=== PATIENT | male | born 1950 | race Caucasian/White ===

== ENCOUNTER 2021-09-21 11:21 | Emergency (ER) | payer BC, OTHER ==
[2021-09-21] MEDS ORDERED: ONDANSETRON 4 MG/2 ML VIAL ONE (12:06)
[2021-09-21] MEDS ORDERED: CEFAZOLIN SODIUM 1 GM/VIAL ONE (12:06)
[2021-09-21] MEDS ORDERED: MORPHINE 4 MG/ML SYR ONE ×3 (12:06→14:56)
--- NOTE | 2021-09-21 12:29 | RAD REPORT ---
EXAM DESCRIPTION: RAD - Hand Right 3 View - 09/21/2021 11:59 am CLINICAL HISTORY: Right hand pain status post injury FINDINGS: Laceration soft tissue third distal phalanx. Lucency is present within the base of the third distal phalanx likely an acute fracture extending int raarticularly. There is widening of the third DIP joint which may indicate ligamentous or tendon tear. MRI of the and may be helpful for further evaluation
--- NOTE | 2021-09-21 13:21 | ER ---
Nurse's Notes [facility] Name: Margi Post Age: 70 yrs Sex: Male : 1950 Arrival Date: 09/21/2021 Time: 11:23 Bed 2 Private MD: Alpesh Yang Diagnosis: Open fracture distal right middle finger with damage to nail with extensor tendon injury Presentation: 09/21 11:55 Chief complaint: Patient states: injured finger-pile of ply wood fell injuring the r jg9 middle finger. Coronavirus screen: Vaccine status: Patient reports being unvaccinated. Ebola Screen: Patient negative for fever greater than or equal to 101.5 degrees Fahrenheit, and additional compatible Ebola Virus Disease symptoms Patient denies exposure to infectious person. Patient denies travel to an Ebola-affected area in the 21 days before illness onset. Initial Sepsis Screen: Does the patient meet any 2 criteria? No. Patient's initial sepsis screen is negative. Does the patient have a suspected source of infection? No. Patient's initial sepsis screen is negative. Risk Assessment: Do you want to hurt yourself or someone else? Patient reports no desire to harm self or others. Onset of symptoms was September 21, 2021. 11:55 Method Of Arrival: Ambulatory [facility] 11:55 Acuity: MATILDE 3 jg9 Triage Assessment: 12:12 General: Appears in no apparent distress. Behavior is calm, cooperative. Pain: jg9 Complains of pain in right hand-middle finger Pain currently is 9 out of 10 on a pain scale. Historical: - Allergies: 12:13 Naproxen; jg9 12:13 hydrocorts; jg9 12:13 poison mike; jg9 - Immunization history:: Adult Immunizations not up to date. - Social history:: Smoking status: Patient denies any tobacco usage or history of. Screenin:10 Abuse screen: Denies threats or abuse. Denies injuries from another. Nutritional jg9 screening: No deficits noted. Tuberculosis screening: No symptoms or risk factors identified. Fall Risk None identified. Assessment: 13:01 Reassessment: Patient and/or family updated on plan of care and expected duration. Pain jg9 level reassessed. Patient is alert, oriented x 3, equal unlabored respirations, skin warm/dry/pink. Patient states symptoms have improved. 14:00 Reassessment: Patient and/or family updated on plan of care and expected duration. Pain jg9 level reassessed. Patient is alert, oriented x 3, equal unlabored respirations, skin warm/dry/pink. 15:00 Reassessment: No changes from previously documented assessment. Patient and/or family jg9 updated on plan of care and expected duration. Pain level reassessed. Patient is alert, oriented x 3, equal unlabored respirations, skin warm/dry/pink. 16:00 Reassessment: No changes from previously documented assessment. Patient and/or family jg9 updated on plan of care and expected duration. Pain level reassessed. Patient is alert, oriented x 3, equal unlabored respirations, skin warm/dry/pink. Vital Signs: 11:55 BP 156 / 83; Pulse 91; Resp 17 S; Temp 98.3(A); Pulse Ox 98% ; Weight 78.47 kg (R); jg9 Height 6 ft. 2 in. (187.96 cm) (R); Pain 10/10; 12:00 BP 160 / 88; Pulse 83; Resp 16 S; Pulse Ox 95% on R/A; Pain 9/10; jg9 12:45 BP 156 / 96; Pulse 74; Resp 16 S; Pulse Ox 100% ; Pain 5/10; jg9 13:45 BP 157 / 85; Pulse 76; Resp 16 S; Pulse Ox 97% ; jg9 14:15 BP 144 / 86; Pulse 66; Resp 16 S; Pulse Ox 97% ; jg9 15:30 BP 154 / 87; Pulse 66; Resp 14 S; Pulse Ox 100% on R/A; Pain 3/10; jg9 16:15 BP 154 / 77; Pulse 64; Resp 16 S; Pulse Ox 100% on R/A; jg9 11:55 Body Mass Index 22.21 (78.47 kg, 187.96 cm) jg9 ED Course: 11:23 Patient arrived in ED. mr 11:23 Alpesh Yang MD is Private Physician. mr 11:25 Juan Carlos Saleem NP is PHCP. pm1 11:25 Christian Mota MD is Attending Physician. pm1 11:55 Brii Miller, ARIADNA is Primary Nurse. jg9 11:57 Triage completed. jg9 12:01 Hand Right 3 View XRAY In Process Unspecified. EDMS 12:10 Inserted saline lock: 18 gauge in left antecubital area, using aseptic technique. jg9 12:13 Patient has correct armband on for positive identification. Bed in low position. Call jg9 light in reach. Side rails up X 1. 12:14 Arm band placed on right wrist. jg9 13:01 No apparent distress. Resting quietly. Awaiting re-evaluation by ER provider. jg9 13:48 initiated transfer to [facility]. bd 14:25 transfer cancelled by Juan Carlos Saleem. bd 16:22 Assist provider with fracture care of right middle finger Fracture is Obvious deformity jg9 is noted. Circulation, motor and sensation is intact. Set up for procedure. Performed by Juan Carlos Saleem EXPERIMENTAL WELDER Immobilized with finger splint. Post immobilization, circulation, motor and sensation remain intact. Patient tolerated well. 16:24 IV discontinued. jg9 Administered Medications: 12:00 Drug: morphine 4 mg {Note: RASS-0.} Route: IVP; Infused Over: 4 mins; Site: left jg9 antecubital; 12:30 Follow up: Response: No adverse reaction; Pain is decreased jg9 12:00 Drug: Zofran (Ondansetron) 4 mg Route: IVP; Site: left antecubital; jg9 12:43 Follow up: Response: No adverse reaction jg9 12:15 Drug: Ancef (cefazolin) 1 grams Route: IVPB; Site: left antecubital; jg9 12:43 Follow up: IV Status: Completed infusion; IV Intake: 10ml jg9 12:41 Drug: morphine 4 mg Route: IVP; Infused Over: 4 mins; Site: left antecubital; jg9 13:30 Follow up: Response: No adverse reaction; Pain is decreased jg9 15:00 Drug: morphine 4 mg Route: IVP; Infused Over: 4 mins; Site: right forearm; jg9 15:45 Follow up: Response: No adverse reaction; Pain is decreased jg9 15:30 Drug: Lidocaine (1 %) 5 ml Volume: 5 ml; Route: Infiltration; Site: affected area; jg9 15:47 Follow up: Response: No adverse reaction; Marked relief of symptoms; Pain is decreased jg9 Medication: 12:14 VIS not applicable for this client. jg9 Intake: 12:43 IV: 10ml; Total: 10ml. jg9 Outcome: 13:20 ER care complete, transfer ordered by MD. pm1 16:17 Discharge ordered by MD. pm1 16:23 Discharged to home ambulatory. jg9 16:23 Condition: stable 16:23 Discharge instructions given to patient, Instructed on discharge instructions, follow up and referral plans. Demonstrated understanding of instructions, follow-up care. 16:24 Prescriptions given X 2. jg9 16:26 Patient left the ED. jg9 Signatures: Dispatcher [employer] EDMS Selina Brown Mary mr JoanJuan Carlos ibarra, EXPERIMENTAL WELDER EXPERIMENTAL WELDER pm1 Brii Miller, RN RN jg9 Corrections: (The following items were deleted from the chart) 12:12 11:57 Allergies: hydrocodone; jg9 jg9 12:13 12:11 Allergies: hydrocots; jg9 jg9 12:13 12:11 Allergies: Naproxen; jg9 jg9 12:13 12:11 Allergies: poison mike; jg9 jg9 12:13 12:13 PMHx: Unable to Obtain; jg9 jg9
--- NOTE | 2021-09-21 13:21 | EDPHYS ---
Physician Documentation [facility] Name: Margi Post Age: 70 yrs Sex: Male : 1950 Arrival Date: 09/21/2021 Time: 11:23 Bed 2 Private MD: Alpesh Yang ED Physician Christian Mota HPI: 09/21 11:42 This 70 yrs old Male presents to ER via Ambulatory with complaints of Finger Laceration.pm1 11:42 The patient or guardian reports injury. The complaints affect the right middle finger. pm1 Context: The problem was sustained at work, resulted from a crush injury, by a heavy object. Onset: The symptoms/episode began/occurred just prior to arrival. Modifying factors: The symptoms are alleviated by nothing, the symptoms are aggravated by nothing. Associated signs and symptoms: Pertinent negatives: cyanosis distally, decreased sensation distally, numbness distally, tingling distally. Severity of symptoms: in the emergency department the symptoms are unchanged. The patient has not experienced similar symptoms in the past. The patient has not recently seen a physician. Patient was at work and was moving multiple pieces of plywood and then his coworker dropped his side of the plywood and the the patient's distal right middle finger was crushed. Right hand dominant. . Historical: - Allergies: 12:13 Naproxen; jg9 12:13 hydrocorts; jg9 12:13 poison mike; jg9 - Immunization history:: Adult Immunizations not up to date. - Social history:: Smoking status: Patient denies any tobacco usage or history of. ROS: 11:42 Constitutional: Negative for fever, chills, and weight loss, Cardiovascular: Negative pm1 for chest pain, palpitations, and edema, Respiratory: Negative for shortness of breath, cough, wheezing, and pleuritic chest pain. 11:42 Neuro: Negative for headache, weakness, numbness, tingling, and seizure. 11:42 MS/extremity: Positive for deformity, laceration, pain, swelling, of the dorsal aspect of distal phalanx of right middle finger and palmar aspect of distal phalanx of right middle finger. 11:42 Skin: Positive for laceration(s), of the right middle finger. 11:42 All other systems are negative. Exam: 11:42 Constitutional: This is a well developed, well nourished patient who is awake, alert, pm1 and in no acute distress. Head/Face: Normocephalic, atraumatic. 11:42 Cardiovascular: Exam negative for acute changes, Rate: normal, Rhythm: regular, Pulses: no pulse deficits are appreciated, Heart sounds: normal, normal S1and S2. 11:42 Respiratory: Exam negative for acute changes, respiratory distress, shortness of breath. 11:42 Skin: Appearance: normal except for affected area, injury, laceration(s), that can be described as contaminated, no foreign body, irregular, without bleeding, Distal phalanx of right middle finger . 11:42 Neuro: Exam negative for acute changes, Orientation: is normal, Mentation: is normal, Motor: is normal, moves all fours. Vital Signs: 11:55 BP 156 / 83; Pulse 91; Resp 17 S; Temp 98.3(A); Pulse Ox 98% ; Weight 78.47 kg (R); jg9 Height 6 ft. 2 in. (187.96 cm) (R); Pain 10/10; 12:00 BP 160 / 88; Pulse 83; Resp 16 S; Pulse Ox 95% on R/A; Pain 9/10; jg9 12:45 BP 156 / 96; Pulse 74; Resp 16 S; Pulse Ox 100% ; Pain 5/10; jg9 13:45 BP 157 / 85; Pulse 76; Resp 16 S; Pulse Ox 97% ; jg9 14:15 BP 144 / 86; Pulse 66; Resp 16 S; Pulse Ox 97% ; jg9 15:30 BP 154 / 87; Pulse 66; Resp 14 S; Pulse Ox 100% on R/A; Pain 3/10; jg9 16:15 BP 154 / 77; Pulse 64; Resp 16 S; Pulse Ox 100% on R/A; jg9 11:55 Body Mass Index 22.21 (78.47 kg, 187.96 cm) 9 MDM: 11:32 Patient medically screened. pm1 11:44 ED course: Tetanus 1.5 years ago from left thumb injury. pm1 13:16 Data reviewed: vital signs. Data interpreted: Pulse oximetry: on room air is 100 %. pm1 Interpretation: normal. 13:18 Counseling: I had a detailed discussion with the patient and/or guardian regarding: pm1 radiology results, the need to transfer to another facility, [facility] does not immediately have the required specialist. 13:26 Physician consultation: Timothy Perez MD regarding consult, patient's condition, after pm1 a discussion of the case, a recommendation for transfer for higher level of care is made, He is not available to help the patient. Not coupon manifest clerk for us. Recommends transfer for higher level of care. . 14:34 Physician consultation: Hand Surgeon Ted regarding regarding transfer, to [facility]. pm1 consult, patient's condition, He reviewed the images of the laceration and x-rays. Recommends removal of nail, discharge with PO antibiotics - Bactrim DS, splint of finger, splint in nailbed fold, and nonadherent dressing. Does not recommend suturing, believes will granulate without suturing. Wants the patient's name and phone number so that his office can call to setup follow up appointment. 15:47 ED course: After cleaning wound, showed Dr. Mota the wound and he recommends some pm1 sutures to tack the loose tissue together. 09/21 13:45 Order name: COVID-19 SARS RT PCR (Document "Date of Onset" if Symptomatic); Complete pm1 Time: 15:10 09/21 11:34 Order name: Hand Right 3 View XRAY; Complete Time: 12:31 pm1 09/21 11:34 Order name: IV Saline Lock; Complete Time: 12:10 pm1 09/21 14:45 Order name: Finger Splint; Complete Time: 16:26 pm1 Administered Medications: 12:00 Drug: morphine 4 mg {Note: RASS-0.} Route: IVP; Infused Over: 4 mins; Site: left jg9 antecubital; 12:30 Follow up: Response: No adverse reaction; Pain is decreased j9 12:00 Drug: Zofran (Ondansetron) 4 mg Route: IVP; Site: left antecubital; jg9 12:43 Follow up: Response: No adverse reaction jg9 12:15 Drug: Ancef (cefazolin) 1 grams Route: IVPB; Site: left antecubital; jg9 12:43 Follow up: IV Status: Completed infusion; IV Intake: 10ml j9 12:41 Drug: morphine 4 mg Route: IVP; Infused Over: 4 mins; Site: left antecubital; jg9 13:30 Follow up: Response: No adverse reaction; Pain is decreased jg9 15:00 Drug: morphine 4 mg Route: IVP; Infused Over: 4 mins; Site: right forearm; jg9 15:45 Follow up: Response: No adverse reaction; Pain is decreased jg9 15:30 Drug: Lidocaine (1 %) 5 ml Volume: 5 ml; Route: Infiltration; Site: affected area; jg9 15:47 Follow up: Response: No adverse reaction; Marked relief of symptoms; Pain is decreased jg9 Disposition: 19:07 Co-signature as Attending Physician, Christian Mota MD. rn Disposition Summary: 09/21/21 16:17 Discharge Ordered Location: Home pm1 Problem: new(09/21/21 16:17) pm1 Symptoms: have improved(09/21/21 16:17) pm1 Condition: Stable(09/21/21 16:17) pm1 Diagnosis - Open fracture distal right middle finger with damage to nail with extensor tendon pm1 injury Followup: pm1 - With: Private Physician - When: 2 - 3 days - Reason: Recheck today's complaints, Continuance of care, Re-evaluation by your physician Followup: pm1 - With: Emergency Department - When: As needed - Reason: Worsening of condition Discharge Instructions: - Discharge Summary Sheet pm1 - Cast or Splint Care, Adult pm1 - Finger Fracture, Adult pm1 - Laceration Care, Adult pm1 - Crush Injury of the Hand pm1 Forms: - Medication Reconciliation Form pm1 - Thank You Letter pm1 - Antibiotic Education pm1 - Prescription Opioid Use pm1 Prescriptions: - Bactrim DS 800-160 mg Oral Tablet - take 1 tablet by ORAL route every 12 hours for 10 days; 20 tablet; Refills: 0, pm1 Product Selection Permitted - Tylenol-Codeine #3 300 mg-30 mg Oral - take 2 tablet by ORAL route every 6 hours As needed; 20 tablet; Refills: 0, pm1 Product Selection Permitted Signatures: Dispatcher [employer] EDChristian Maloney MD MD rn Marinas, Patrick, MELISSA SHELVER pm1 Brii Miller RN RN jg9 Corrections: (The following items were deleted from the chart) 12:12 11:57 Allergies: hydrocodone; jg9 jg9 12:13 12:11 Allergies: hydrocots; jg9 jg9 12:13 12:11 Allergies: Naproxen; jg9 jg9 12:13 12:11 Allergies: poison mike; jg9 jg9 12:13 12:13 PMHx: Unable to Obtain; jg9 jg9 16:16 13:20 MD pm1 pm1 16:16 13:20 [facility] pm1 pm1 16:16 13:20 Specialty pm1 pm1 16:16 13:20 Stable pm1 pm1 16:16 13:20 new pm1 pm1 16:16 13:20 have improved [facility] pm1 16:16 13:20 Open fracture distal right middle finger with damage to nail with extensor tendon pm1 injury pm1 18:42 14:34 Physician consultation: Hand Surgeon Ted regarding regarding transfer, to [address] consult, patient's condition, He reviewed the images of the laceration and x-rays. Recommends removal of nail, discharge with PO antibiotics - Bactrim DS, splint of finger, splint in nailbed fold, and nonadherent dressing. Does not recommend suturing, believes will granulate without suturing, 1
[2021-09-21] MEDS ORDERED: LIDOCAINE 1% MPF 5 ML VIAL ONE (14:54)
[2021-09-21 16:32] VITALS: TEMP 98.3
[2021-09-21 16:40] VITALS: O2SAT 100
[2021-09-21 16:41] VITALS: BP 154/77
== END 2021-09-21 16:26 | disposition home or self-care (01) ==
LOC: ER 11:21
DX: S62.632B Displaced fracture of distal phalanx of right middle finger, initial encounter for open fracture (principal); W20.8XXA Other cause of strike by thrown, projected or falling object, initial encounter; Y93.89 Activity, other specified; Y92.69 Other specified industrial and construction area as the place of occurrence of the external cause; Y99.0 Civilian activity done for income or pay; Z88.8 Allergy status to other drugs, medicaments and biological substances; Z20.822 Contact with and (suspected) exposure to COVID-19
CPT/HCPCS: 73130; 99284; U0003; J2405; J0690

== ENCOUNTER 2021-10-01 07:11 | Day surgery (SDC) | payer BC, OTHER ==
[2021-09-30 15:24] LABS: Absolute Lymphocytes (CBC) 1.1 K/uL (0.7-4.9); Hematocrit 39.9 % (39.6-49.0); MPV 7.5 fL (7.6-11.3)
--- NOTE | 2021-09-30 15:32 | RAD REPORT ---
EXAM DESCRIPTION: RAD - Chest Pa And Lat (2 Views) - 09/30/2021 3:18 pm CLINICAL HISTORY: Pre op COMPARISON: No comparisons FINDINGS: Lines: None. Lungs: No evidence of edema or pneumonia. Pleural: No significant pleural effusions or pneumothorax. Cardiac: The heart size is within normal limits. Bones: No acute fractures. Other: IMPRESSION: No acute cardiopulmonary disease.
[2021-10-01] MEDS ORDERED: Ringers Lactate 1,000 ML IV ONE (07:27)
[2021-10-01] MEDS ORDERED: CEFAZOLIN SODIUM 1 GM/VIAL ONE (07:27)
[2021-10-01] MEDS ORDERED: propofoL 200 MG/20 ML VIAL IV ONE (09:01)
[2021-10-01] MEDS ORDERED: MIDAZOLAM HCL 2 MG/2 ML INJ ONE (09:01)
[2021-10-01] MEDS ORDERED: FENTANYL CITR 100 MCG/2 ML ONE (09:01)
[2021-10-01] MEDS ORDERED: LIDOCAINE 2% MPF 5 ML VIAL ONE (09:01)
[2021-10-01] MEDS ORDERED: KETOROLAC 30 MG/ML INJ ONE (09:01)
--- NOTE | 2021-10-01 10:25 | RAD REPORT ---
EXAM DESCRIPTION: RAD - Fluoroscopy <1 Hour - 10/01/2021 10:10 am CLINICAL HISTORY: Finger surgery FINDINGS: Thirty-eight intraoperative fluoroscopic spot images obtained Fluoroscopy time 1 minutes Pins have been placed into a phalanx. Please refer to surgeons report for additional findings The examination was performed by Dr. Perez
[2021-10-01] MEDS: HYDROMORPHONE HCL 1 MG/ML INJ ONE ×8 (10:43→11:19)
[2021-10-01] MEDS ORDERED: HYDROMORPHONE HCL 1 MG/ML INJ ONE (11:03)
[2021-10-01] MEDS ORDERED: CODEINE 30MG/APAP 300MG TAB ONE (11:57)
[2021-10-01 13:12] VITALS: BP 136/91; TEMP 97.4; O2SAT 100
--- NOTE | 2021-10-01 21:36 | OP ---
Surgeon: Timothy Perez MD Preoperative Diagnoses: Open fracture of the right middle and distal phalanx, extensor tendon lacera tion, open wound of the finger. Postoperative Diagnoses: Open fracture of the right middle and distal phalanx, extensor tendon lacer ation, open wound of the finger. Procedures Performed: Debridement of the skin, subcutaneous tissue, and bone; fusion of distal inter phalangeal joint; extensor tendon repair; nail bed repair; simple closure of approximately 2 cm and s plint. Anesthesia: General. Description Of Procedure: After the satisfactory induction of general anesthesia, the right hand was prepped with Betadine scrub and Betadine paint. Dry sterile drapes were applied in usual manner. T he arm was elevated and exsanguinated with an Esmarch. Tourniquet was inflated to 250 mmHg. A scalp el was used to extend the incision where the patient had laceration over the right middle finger on t he ulnar side. Laceration extended in a zig-zag over the dorsum. Again, the excess extensor surface of the finger and nail bed had been prepped, and based on the ulnar side, the joint with comminuted fracture. Arcuate fracture is missing. The joint could not be salvaged. The extensor tendon was ba sically ripped off distally. The joint was irrigated with 3 L of Betadine solution. Then, a saw was used to freshen both edges after this was done and then fusion was performed with a 0.035 K-wires, p assed from proximal to distal at the distal phalanx and then from distal to proximal into the middle phalanx, aligning the fusion at approximately 10 degrees of flexion. We also arthrodesed the PIP desiree nt. After this was done, wire was cut and bent, and then the patient underwent repair. A drill hole was made in the distal phalanx tip. A 4-0 Prolene was placed to advance the extensor mechanism to t he point of attachment. After this was done, we did skin edges and repaired the nail bed. Horizonta l mattress sutures were used to advance the nail bed to close it. Nail bed laceration was closed wit h 4-0 PDS, and then the skin flap was closed with 4-0 Prolene horizontal mattress and simple sutures. A piece of and the tourniquet was released. Dressed with Xeroform, 2-inch Meri, and sp lint holding the PIP and DIP in extension. The patient tolerated the procedure well and returned to recovery. PAMELA/KRYSTLE Voice ID: [id number] Report ID: [id number]
--- NOTE | 2021-10-03 17:37 | EKG ---
Test Date: 2021-09-30 Test Time: 15:00:33 Fiberglass Technician: BHARAT MEASUREMENT RESULTS: Intervals: Rate: 74 MO: 186 QRSD: 122 QT: 390 QTc: 432 [place]: P: 66 MO: 186 QRS: -26 T: 44 INTERPRETIVE STATEMENTS: Normal sinus rhythm Right bundle branch block Abnormal ECG No previous ECG available for comparison Electronically Signed On 10-03-21 17:31:55 CDT by Nahum Vasquez
== END 2021-10-01 12:30 | disposition home or self-care (01) ==
LOC: OR 07:11
PROVIDERS: ATTEND Specialist
PROC: 0PST04Z Reposition Right Finger Phalanx with Internal Fixation Device, Open Approach (ICD-10-PCS; 2021-10-01)
PROC: 0PST04Z Reposition Right Finger Phalanx with Internal Fixation Device, Open Approach (ICD-10-PCS; principal; 2021-10-01 09:00)
DX: S62.632B Displaced fracture of distal phalanx of right middle finger, initial encounter for open fracture (principal); S66.322A Laceration of extensor muscle, fascia and tendon of right middle finger at wrist and hand level, initial encounter; Z20.822 Contact with and (suspected) exposure to COVID-19
CPT/HCPCS: 93005; 85025; 36415; 88304; 71046; 76000; 26765; 11012; U0003; J2704; J2250; J3010; J1170 ×3; J7120; J0690

== ENCOUNTER 2021-10-16 14:31 | Emergency (ER) | payer OTHER, BC ==
[2021-10-16 15:56] LABS: Absolute Lymphocytes (CBC) 1.4 K/uL (0.7-4.9); Hematocrit 36.7 % (39.6-49.0); Lymphocytes % 28.3 % (15.3-44.8); MCV 96.2 fL (80-100); RBC Red Blood Cell Count 3.81 M/uL (4.33-5.43)
--- NOTE | 2021-10-16 16:22 | EDPHYS ---
Physician Documentation [facility] Name: Margi Post Age: 70 yrs Sex: Male : 1950 Arrival Date: 10/16/2021 Time: 14:32 Bed 14 Private MD: ED Physician Jesus Santamaria HPI: 10/16 16:06 This 70 yrs old Male presents to ER via Ambulatory with complaints of Wound Check - pm1 right middle finger. 16:06 Patient presents to ED for recheck of: surgical repair and right middle finger crush pm1 injury. The affected area is on the right middle finger. Previous treatment: Middle finger crush injury on September 21, 2021. Patient was discharged from the ER at that time and followed up with Dr. Mike. Patient with surgical repair of his right middle finger and he is presenting here today in the ER for evaluation of his surgical wound per recommendation by hand surgeon. Patient was concerned about a greenish discoloration to his finger. Progress: The patient reports excellent improvement in the affected area. There has been resolution, improvement, or non-development of any drainage, fever, pain, redness or swelling. The patient has not experienced similar symptoms in the past. The patient has not recently seen a physician, Patient with appointment on Tuesday that was canceled due to surgery that Dr. Mike had to perform another patient. Patient was rescheduled to next week. 16:06 Patient reports seeing the green discoloration to his finger postsurgery, for at least pm1 the past week and reports improvement in the discoloration. Historical: - Allergies: 15:09 hydrocorts; jg9 15:09 Naproxen; jg9 15:09 POISON CARLENE; jg9 - Immunization history:: Adult Immunizations not up to date. - Social history:: Smoking status: Patient denies any tobacco usage or history of. ROS: 16:06 Constitutional: Negative for fever, chills, and weight loss, Cardiovascular: Negative pm1 for chest pain, palpitations, and edema, Respiratory: Negative for shortness of breath, cough, wheezing, and pleuritic chest pain, MS/Extremity: Negative for injury and deformity. 16:06 Skin: Positive for Greenish coloration to right middle finger. 16:06 All other systems are negative. Exam: 16:06 Constitutional: This is a well developed, well nourished patient who is awake, alert, pm1 and in no acute distress. Head/Face: Normocephalic, atraumatic. 16:06 Cardiovascular: Exam negative for acute changes, Rate: normal, Rhythm: regular, Pulses: no pulse deficits are appreciated. 16:06 Respiratory: Exam negative for acute changes, respiratory distress, shortness of breath. 16:06 Skin: Wound recheck: Suture laceration closure: the wound is healing well, the edges are well approximated, no evidence of dehiscence, no drainage, no erythema, No indication of cellulitis or abscess. Patient with out any signs of discharge, erythema, dehiscence. Patient with expected normal amount of swelling postsurgical repair with pinning. Small turquoise color discoloration to various locations on right middle finger. Negative for papules or pustules. Vital Signs: 15:05 BP 131 / 75; Pulse 65; Resp 17 S; Temp 98.4; Pulse Ox 99% on R/A; Weight 77.11 kg; jg9 Height 6 ft. 2 in. (187.96 cm); Pain 3/10; 15:30 BP 108 / 73; Pulse 67; Resp 17 S; Pulse Ox 100% on R/A; jg9 16:00 BP 113 / 71; Pulse 63; Resp 17 S; Pulse Ox 100% on R/A; jg9 16:30 BP 122 / 68; Pulse 62; Resp 17 S; Pulse Ox 100% ; jg9 15:05 Body Mass Index 21.83 (77.11 kg, 187.96 cm) 9 MDM: 14:40 Patient medically screened. pm1 15:04 Physician consultation: Timothy Perez MD regarding consult, patient's condition, would pm1 like further tests performed, CBC, Informed him that I evaluated the patient with Dr. Handley and we do not appreciate infection present in the finger. Dr. Perez would like to see the patient at 9:00 on Tuesday. 16:06 Data reviewed: vital signs. Data interpreted: Pulse oximetry: on room air is 99 %. pm1 Interpretation: normal. 16:07 Counseling: I had a detailed discussion with the patient and/or guardian regarding: lab pm1 results, the need for outpatient follow up, Dr. Perez would like the patient to see him in the office on Tuesday at 9:00, to return to the emergency department if symptoms worsen or persist or if there are any questions or concerns that arise at home. 16:57 ED course: No contact back from Ana, will cover the patient with double pm1 antibiotic coverage, cephalexin and Cipro. Gave patient return precautions for worsening symptoms prior to evaluation by Dr. Carter on Tuesday at 9:00. 10/16 15:04 Order name: CBC with Diff; Complete Time: 16:06 pm1 Administered Medications: No medications were administered Disposition: 18:56 Co-signature as Attending Physician, Jesus Santamaria DO I was immediately available on-site ms3 in the Emergency Department for consultation in the care of the patient.. Disposition Summary: 10/16/21 16:22 Discharge Ordered Location: Home pm1 Problem: new pm1 Symptoms: have improved pm1 Condition: Stable pm1 Diagnosis - Encounter for evaluation of surgical wound right middle finger pm1 Followup: pm1 - With: Emergency Department - When: As needed - Reason: Worsening of condition Followup: pm1 - With: Timothy Perez MD - When: 10/19/2021 - Reason: Recheck today's complaints, Continuance of care, Re-evaluation by your physician, Tuesday at 9:00AM in his office Discharge Instructions: - Discharge Summary Sheet pm1 - Sutured Wound Care pm1 Forms: - Medication Reconciliation Form pm1 - Thank You Letter pm1 - Antibiotic Education pm1 - Prescription Opioid Use pm1 Prescriptions: - Cephalexin 500 mg Oral Capsule - take 1 capsule by ORAL route every 6 hours for 10 days; 40 capsule; Refills: 0, pm1 Product Selection Permitted - Cipro 500 mg Oral Tablet - take 1 tablet by ORAL route every 12 hours for 10 days; 20 tablet; Refills: 0, pm1 Product Selection Permitted Signatures: [facility] EDJuan Carlos Grier NP IRON WORKER APPRENTICE pm1 Jesus Santamaria DO DO ms3 Brii Miller RN RN jg9 Corrections: (The following items were deleted from the chart) 10/17 11:19 10/16 16:57 ED course: No contact back from Ana, will cover the patient with pm1 double antibiotic coverage, cephalexin and Cipro. Gave patient return precautions for worsening symptoms prior to evaluation by 1 on Tuesday at 9:00. pm1
--- NOTE | 2021-10-16 16:22 | ER ---
Nurse's Notes [facility] Name: Margi Post Age: 70 yrs Sex: Male : 1950 Arrival Date: 10/16/2021 Time: 14:32 Bed 14 Private MD: Diagnosis: Encounter for evaluation of surgical wound right middle finger Presentation: 10/16 15:05 Chief complaint: Patient states: patient is here for a wound evaluation of middle jg9 finger on the right hand. Coronavirus screen: Vaccine status: Patient reports being unvaccinated. Ebola Screen: Patient negative for fever greater than or equal to 101.5 degrees Fahrenheit, and additional compatible Ebola Virus Disease symptoms Patient denies exposure to infectious person. Patient denies travel to an Ebola-affected area in the 21 days before illness onset. Initial Sepsis Screen: Does the patient meet any 2 criteria? No. Patient's initial sepsis screen is negative. Does the patient have a suspected source of infection? Yes: Skin breakdown/wound. Risk Assessment: Do you want to hurt yourself or someone else? Patient reports no desire to harm self or others. 15:05 Method Of Arrival: Ambulatory 9 15:05 Acuity: MATILDE 3 j9 15:12 Onset of symptoms is unknown. 9 Triage Assessment: 15:05 General: Appears in no apparent distress. Behavior is calm, cooperative. Pain: jg9 Complains of pain in palmar aspect of distal phalanx of right middle finger and right middle fingernail Pain currently is 3 out of 10 on a pain scale. Quality of pain is described as. Historical: - Allergies: 15:09 hydrocorts; jg9 15:09 Naproxen; jg9 15:09 POISON CARLENE; jg9 - Immunization history:: Adult Immunizations not up to date. - Social history:: Smoking status: Patient denies any tobacco usage or history of. Screenin:11 Abuse screen: Denies threats or abuse. Denies injuries from another. Nutritional jg9 screening: No deficits noted. Tuberculosis screening: No symptoms or risk factors identified. Fall Risk None identified. Assessment: 16:00 Reassessment: No changes from previously documented assessment. Patient and/or family jg9 updated on plan of care and expected duration. Pain level reassessed. Patient is alert, oriented x 3, equal unlabored respirations, skin warm/dry/pink. Vital Signs: 15:05 BP 131 / 75; Pulse 65; Resp 17 S; Temp 98.4; Pulse Ox 99% on R/A; Weight 77.11 kg; jg9 Height 6 ft. 2 in. (187.96 cm); Pain 3/10; 15:30 BP 108 / 73; Pulse 67; Resp 17 S; Pulse Ox 100% on R/A; jg9 16:00 BP 113 / 71; Pulse 63; Resp 17 S; Pulse Ox 100% on R/A; jg9 16:30 BP 122 / 68; Pulse 62; Resp 17 S; Pulse Ox 100% ; jg9 15:05 Body Mass Index 21.83 (77.11 kg, 187.96 cm) jg9 ED Course: 14:32 Patient arrived in ED. am2 14:36 Jesus Santamaria DO is Attending Physician. ms3 14:40 Juan Carlos Saleem NP is PHCP. pm1 15:02 Brii Miller, ARIADNA is Primary Nurse. jg9 15:07 Triage completed. jg9 15:11 Arm band placed on right wrist. jg9 15:11 Patient has correct armband on for positive identification. jg9 16:00 No apparent distress. Resting quietly. Awaiting disposition. jg9 16:18 Timothy Perez MD is Referral Physician. pm1 17:17 No provider procedures requiring assistance completed. jg9 17:17 Patient did not have IV access during this emergency room visit. jg9 Administered Medications: No medications were administered Medication: 15:12 VIS not applicable for this client. jg9 Outcome: 16:22 Discharge ordered by . pm1 17:17 Discharged to home ambulatory. jg9 17:17 Condition: stable 17:17 Discharge instructions given to patient, Instructed on discharge instructions, follow up and referral plans. Demonstrated understanding of instructions, follow-up care, Prescriptions given X 2. 17:17 Patient left the ED. jg9 Signatures: Juan Carlos Saleem NP BRAIDER TENDER pm1 Rylie Arrington am2 Jesus Santamaria DO DO ms3 Brii Miller, RN RN jg9 Corrections: (The following items were deleted from the chart) 15:15 15:05 BP 131 / 75; Pulse 65bpm; Resp 17bpm; Spontaneous; Pulse Ox 99% RA; Pain 06/18; [id number]
[2021-10-16 17:21] VITALS: TEMP 98.4
[2021-10-16 17:25] VITALS: O2SAT 100
[2021-10-16 17:28] VITALS: BP 122/68
== END 2021-10-16 17:17 | disposition home or self-care (01) ==
LOC: ER 14:31
DX: Z48.01 Encounter for change or removal of surgical wound dressing (principal)
CPT/HCPCS: 36415; 85025; 99282